=== PATIENT | male | born 1960 | race Caucasian/White ===

== ENCOUNTER → 2024-07-04 07:51 | Outpatient (REF) | payer OTHER, SELFPAY | LOC: RAD 07:51 | PROVIDERS: ATTENDING PHYSICIAN Family Medicine | DX: M53.82 Other specified dorsopathies, cervical region (principal) | CPT/HCPCS: 72052 ==

== ENCOUNTER 2025-04-06 06:13 | Day surgery (SDC) | payer OTHER, SELFPAY ==
[2025-04-06 10:20] LABS: Glucose - Point of Care 105 mg/dl (70-99)
== END 2025-04-06 11:25 | disposition home or self-care (01) ==
LOC: GI 06:13
PROVIDERS: ATTENDING PHYSICIAN Internal Medicine Gastroenterology
DX: Z12.11 Encounter for screening for malignant neoplasm of colon (principal); K64.8 Other hemorrhoids; K57.30 Diverticulosis of large intestine without perforation or abscess without bleeding; D12.2 Benign neoplasm of ascending colon; D12.4 Benign neoplasm of descending colon; K63.5 Polyp of colon; Z86.0100 Personal history of colon polyps, unspecified
CPT/HCPCS: 45385; 45380; 88305; 82962

== ENCOUNTER → 2025-10-23 11:47 | Outpatient (REF) | payer OTHER, SELFPAY ==
[2025-10-23 13:38] LABS: Hepatitis B Surface Antigen Negative (Negative)
[2025-10-23 13:56] LABS: Hepatitis C Antibody Negative (Negative)
== END ==
LOC: CLAB 11:47
PROVIDERS: ATTENDING PHYSICIAN Family Medicine
DX: Z13.0 Encounter for screening for diseases of the blood and blood-forming organs and certain disorders involving the immune mechanism (principal); Y84.7 Blood-sampling as the cause of abnormal reaction of the patient, or of later complication, without mention of misadventure at the time of the procedure
CPT/HCPCS: 86803; 87340; 87389